=== PATIENT | female | born 1995 | race Two or more races ===

== ENCOUNTER 2020-03-08 07:11 | Inpatient (IN) | payer SELFPAY ==
[~2020-03-08] VITALS: Ht 152.4 cm; Wt 71.7 kg
[2020-03-08 07:40] VITALS: BP 120/66
[2020-03-08] MEDS ORDERED: ONDANSETRON PF 4 MG/2 ML VIAL. IVP PRN (07:45)
[2020-03-08] MEDS ORDERED: LIDOCAINE 1% PF 30 ML VIAL. INJ PRN (07:45)
[2020-03-08] MEDS ORDERED: OXYTOCIN 30 UNIT/500 ML PREMIX 500 ML IV PRN ×3 (07:45→17:30)
[2020-03-08] MEDS ORDERED: ACETAMINOPHEN 325 MG TABLET. PO PRN ×2 (07:45→17:30)
[2020-03-08] MEDS ORDERED: TERBUTALINE 1 MG/ML VIAL. SQ PRN (07:45)
[2020-03-08] MEDS ORDERED: CITRIC ACID/SODIUM CITRATE 30 ML SOLUTION. PO PRN (07:45)
[2020-03-08] MEDS ORDERED: IBUPROFEN 400 MG TABLET. PO PRN ×2 (07:45→17:30)
[2020-03-08] MEDS ORDERED: 0.9 % SODIUM CHLORIDE 10 ML DISP.SYRIN. IV PRN ×2 (07:45→17:30)
[2020-03-08] MEDS ORDERED: PENICILLIN G K 5,000,000 UNIT in IV DEXTROSE 5% 100ML 100 ML IV ONE (08:00)
[2020-03-08] MEDS ORDERED: OXYTOCIN PREMIX 30 UNIT/500 ML NS BAG. IV ONE (08:04)
[2020-03-08 08:14] LABS: BILIRUBIN,URINE NEGATIVE (NEG); CLARITY,URINE CLEAR; COLOR,URINE YELLOW; NITRITE,URINE NEGATIVE (NEG); PROTEIN,URINE NEGATIVE (NEG-TRACE); UROBILINOGEN,URINE 0.2 mg/dL (0.2 mg/dL)
[2020-03-08] MEDS: IV RINGERS,LACTATED 1000ML 1,000 ML IV SCH ×2 (08:28→14:08)
[2020-03-08 08:32] LABS: BACTERIA,URINE FEW /HPF (0-FEW); RBC,URINE 0 /HPF (0-2); SQUAMOUS EPITHELIAL CELL,UR MANY /LPF
[2020-03-08 08:49] LABS: BASO % 0 % (0-3); EOS # 0.1 x10^3/uL (0.0-0.7); EOS % 1 % (0-3); HEMATOCRIT 40.4 % (36.0-47.0); HEMOGLOBIN 13.5 g/dL (12.0-15.5); LYMPH # 2.2 x10^3/uL (1.0-4.8); LYMPH % 20 % (24-48); MEAN CORPUSCULAR HEMOGLOBIN 30 pg (25-35); MEAN CORPUSCULAR HGB CONC 33 g/dL (31-37); MEAN CORPUSCULAR VOLUME 89 fL (79-100); MONO # 0.6 x10^3/uL (0.0-1.1); MONO % 6 % (0-9); NEUT # 7.9 x10^3/uL (1.8-7.7); NEUT % 73 % (31-73); PLATELET COUNT 263 x10^3/uL (140-400); RED BLOOD COUNT 4.53 x10^6/uL (3.50-5.40); RED CELL DISTRIBUTION WIDTH 14.2 % (11.5-14.5); WHITE BLOOD COUNT 10.9 x10^3/uL (4.0-11.0)
--- NOTE | 2020-03-08 09:17 | PDOC1 ---
OB - History Hx of Present Care: Good Care Ultrasounds: Normal mid trimester US Obstetrical Complications: None Medical Complications: None Past Family/Social History * Past Medical, Surgical, Family and Obstetric Histories reviewed from chart. Rubella: Immune RPR/VDRL: Negative GBS Status: Unknown HBsAG: Negative OB - Chief Complaint & HPI Date of Admission: Date of Admission: Mar 08, 2020 at 07:11 Chief Complaint/History : 3 Para: 2 EGA: 40 Reason for admission: active labor Admission Nurse Assessment Rev: Yes OB - Admission Exam Physical Exam Vitals: VS - Last 72 Hours, by Label Date Time Temp Pulse Resp B/P (MAP) Pulse Ox O2 Delivery O2 Flow Rate FiO2 03/08/20 07:40 97.6 88 20 120/66 (84) Room Air 97.6 HEENT: Normal Heart: Regular Rate Lungs: Clear Abdomen: Gravid, Non tender, Soft Extremities: Edema Reflexes: Normal Cervical Dilatation: 4cm Effacement: 75% Station: -2 Membranes: Intact Heart Rate: Normal Accelerations: Accelerations Present Decelerations: No decelerations Contractions on Admission: < 5 Minutes Apart Intensity: Moderate Text A: 40 wks IUP Active labor GBS unknown P: Admit labor management and Pen G prophylaxis. JUSTA PATRICIO Jr, MD Mar 08, 2020 09:17
[2020-03-08] MEDS: fentaNYL PF VIAL 100 MCG/2 ML VIAL IVP PRN ×3 (11:47→16:26)
[2020-03-08] MEDS ORDERED: PENICILLIN G K 2,500,000 UNIT in IV DEXTROSE 5% 50 ML IV SCH (12:00)
--- NOTE | 2020-03-08 17:24 | PDOC ---
VAGINAL DELIVERY DATE DATE: 03/08/20 TIME: 17:22 : 3 Para: 3 EGA: 40 VAGINAL DELIVERY: VTX VACCUM ASSISTED: No PLACENTA: Spontaneous 8/9 SEX: Female WEIGHT Weight [ pending ] Nuchal Cord: Yes, Times 1 Amniotic Fluid: Clear PAIN: Natural EPISIOTOMY: No EXTENSION: No EBL 300 ml COMPLICATIONS none CONDITION pt. stable Signs of Intrauterine Infectio: None Shoulder Dystocia: No JUSTA PATRICIO Jr, MD Mar 08, 2020 17:24
[2020-03-08] MEDS ORDERED: diphenhydrAMINE HCL 25 MG CAPSULE PO PRN (17:30)
[2020-03-08] MEDS ORDERED: PHENYLEPH/MINERAL OIL/PETROLAT RECTAL OINTMENT TUBE. RC PRN (17:30)
[2020-03-08] MEDS ORDERED: TDaP (Adacel) per PROTOCOL. MC PRN (17:30)
[2020-03-08] MEDS ORDERED: MAGNESIUM HYDROXIDE 2,400 MG/30 ML ORAL.SUSP. PO PRN (17:30)
[2020-03-08] MEDS ORDERED: ZOLPIDEM 5 MG TABLET. PO PRN (17:30)
[2020-03-08] MEDS ORDERED: MAG HYDROX/ALUMINUM HYD/SIMETH 30 ML ORAL.SUSP PO PRN (17:30)
[2020-03-08] MEDS ORDERED: HYDROCORTISONE 1% TOPICAL OINTMENT 30GM TUBE. TP PRN (17:30)
[2020-03-08] MEDS ORDERED: SIMETHICONE 80 MG TAB.CHEW PO PRN (17:30)
[2020-03-08] MEDS ORDERED: BENZOCAINE 20% TOPICAL AEROSOL SPRAY 57GM CAN. TP PRN (17:30)
[2020-03-08] MEDS ORDERED: MMR per PROTOCOL. MC PRN (17:30)
[2020-03-08] MEDS ORDERED: oxyCODONE/APAP 5/325 1 TAB TABLET PO PRN (17:30)
[2020-03-08 20:40] VITALS: BP 107/50
[2020-03-09 01:00] VITALS: BP 96/51
[2020-03-09 05:02] LABS: BASO # 0.1 x10^3/uL (0.0-0.2); BASO % 1 % (0-3); EOS # 0.1 x10^3/uL (0.0-0.7); EOS % 1 % (0-3); HEMATOCRIT 36.1 % (36.0-47.0); HEMOGLOBIN 11.9 g/dL (12.0-15.5); LYMPH # 3.4 x10^3/uL (1.0-4.8); LYMPH % 29 % (24-48); MEAN CORPUSCULAR HEMOGLOBIN 30 pg (25-35); MEAN CORPUSCULAR HGB CONC 33 g/dL (31-37); MEAN CORPUSCULAR VOLUME 90 fL (79-100); MONO # 0.8 x10^3/uL (0.0-1.1); MONO % 7 % (0-9); NEUT # 7.2 x10^3/uL (1.8-7.7); NEUT % 62 % (31-73); PLATELET COUNT 234 x10^3/uL (140-400); RED CELL DISTRIBUTION WIDTH 14.1 % (11.5-14.5); WHITE BLOOD COUNT 11.6 x10^3/uL (4.0-11.0)
[2020-03-09 06:00] VITALS: BP 100/56
[2020-03-09] MEDS ORDERED: FERROUS SULFATE 325 MG TABLET. PO SCH (08:00)
[2020-03-09] MEDS: DOCUSATE SODIUM 100 MG CAPSULE. PO PRN ×2 (08:30→20:32)
[2020-03-09] MEDS ORDERED: MULTIVITAMIN with MINERAL TABLET. PO SCH (09:00)
--- NOTE | 2020-03-09 11:27 | PDOC ---
OB Progress Note Date of Service 03/09/20 Time of Evaluation 1125 Notes Pt. feeling well. No complaints. Lab Laboratory Tests Test 03/08/20 07:30 03/08/20 08:33 03/09/20 04:27 Urine Collection Type Unknown Urine Color Yellow Urine Clarity Clear Urine pH 7.0 (<5.0-8.0) Urine Specific [place] <=1.005 (1.000-1.030) Urine Protein Negative mg/dL (NEG-TRACE) Urine Glucose (UA) Negative mg/dL (NEG) Urine Ketones (Stick) Negative mg/dL (NEG) Urine Blood Negative (NEG) Urine Nitrite Negative (NEG) Urine Bilirubin Negative (NEG) Urine Urobilinogen Dipstick 0.2 mg/dL (0.2 mg/dL) Urine Leukocyte Esterase Moderate (NEG) Urine RBC 0 /HPF (0-2) Urine WBC 1-4 /HPF (0-4) Urine Squamous Epithelial Cells Many /LPF Urine Bacteria Few /HPF (0-FEW) White Blood Count 10.9 x10^3/uL (4.0-11.0) 11.6 x10^3/uL (4.0-11.0) Red Blood Count 4.53 x10^6/uL (3.50-5.40) 4.00 x10^6/uL (3.50-5.40) Hemoglobin 13.5 g/dL (12.0-15.5) 11.9 g/dL (12.0-15.5) Hematocrit 40.4 % (36.0-47.0) 36.1 % (36.0-47.0) Mean Corpuscular Volume 89 fL (79-100) 90 fL (79-100) Mean Corpuscular Hemoglobin 30 pg (25-35) 30 pg (25-35) Mean Corpuscular Hemoglobin Concent 33 g/dL (31-37) 33 g/dL (31-37) Red Cell Distribution Width 14.2 % (11.5-14.5) 14.1 % (11.5-14.5) Platelet Count 263 x10^3/uL (140-400) 234 x10^3/uL (140-400) Neutrophils (%) (Auto) 73 % (31-73) 62 % (31-73) Lymphocytes (%) (Auto) 20 % (24-48) 29 % (24-48) Monocytes (%) (Auto) 6 % (0-9) 7 % (0-9) Eosinophils (%) (Auto) 1 % (0-3) 1 % (0-3) Basophils (%) (Auto) 0 % (0-3) 1 % (0-3) Neutrophils # (Auto) 7.9 x10^3/uL (1.8-7.7) 7.2 x10^3/uL (1.8-7.7) Lymphocytes # (Auto) 2.2 x10^3/uL (1.0-4.8) 3.4 x10^3/uL (1.0-4.8) Monocytes # (Auto) 0.6 x10^3/uL (0.0-1.1) 0.8 x10^3/uL (0.0-1.1) Eosinophils # (Auto) 0.1 x10^3/uL (0.0-0.7) 0.1 x10^3/uL (0.0-0.7) Basophils # (Auto) 0.0 x10^3/uL (0.0-0.2) 0.1 x10^3/uL (0.0-0.2) Treponema pallidum Antibody Nonreactive (Nonreactive) Laboratory Tests Test 03/09/20 04:27 White Blood Count 11.6 x10^3/uL (4.0-11.0) Red Blood Count 4.00 x10^6/uL (3.50-5.40) Hemoglobin 11.9 g/dL (12.0-15.5) Hematocrit 36.1 % (36.0-47.0) Mean Corpuscular Volume 90 fL (79-100) Mean Corpuscular Hemoglobin 30 pg (25-35) Mean Corpuscular Hemoglobin Concent 33 g/dL (31-37) Red Cell Distribution Width 14.1 % (11.5-14.5) Platelet Count 234 x10^3/uL (140-400) Neutrophils (%) (Auto) 62 % (31-73) Lymphocytes (%) (Auto) 29 % (24-48) Monocytes (%) (Auto) 7 % (0-9) Eosinophils (%) (Auto) 1 % (0-3) Basophils (%) (Auto) 1 % (0-3) Neutrophils # (Auto) 7.2 x10^3/uL (1.8-7.7) Lymphocytes # (Auto) 3.4 x10^3/uL (1.0-4.8) Monocytes # (Auto) 0.8 x10^3/uL (0.0-1.1) Eosinophils # (Auto) 0.1 x10^3/uL (0.0-0.7) Basophils # (Auto) 0.1 x10^3/uL (0.0-0.2) Medications Current Medications Sodium Chloride (Normal Saline Flush) 3 ml QSHIFT PRN IV AFTER MEDS AND BLOOD DRAWS; Start 03/08/20 at 07:45; Stop 03/08/20 at 17:26; Status DC Ringer's Solution 1,000 ml @ 125 mls/hr Q8H IV Last administered on 03/08/20at 14:08; Start 03/08/20 at 07:43; Stop 03/08/20 at 21:39; Status DC Fentanyl Citrate (Fentanyl 2ml Vial) 100 mcg PRN Q30MIN PRN IVP Severe pain Last administered on 03/08/20at 16:26; Start 03/08/20 at 07:45 Acetaminophen (Tylenol) 650 mg PRN Q6HRS PRN PO MILD PAIN / TEMP; Start 03/08/20 at 07:45; Stop 03/08/20 at 17:27; Status DC Ondansetron HCl (Zofran) 4 mg PRN Q4HRS PRN IVP NAUSEA/VOMITING; Start 03/08/20 at 07:45 Citric Acid/ Sodium Citrate (Bicitra) 30 ml 1X PRN PRN PO DYSPEPSIA; Start 02/24 02/12 at 07:45; Stop 03/09/20 at 07:44; Status DC Terbutaline Sulfate (Brethine) 0.25 mg 1X PRN PRN SQ SEE COMMENTS; Start 02/24 02/12 at 07:45; Stop 03/09/20 at 07:44; Status DC Lidocaine HCl (Xylocaine 1% Pf 30ml Vial) 30 ml 1X PRN PRN INJ SEE COMMENTS; Start 03/08/20 at 07:45; Stop 03/10/20 at 07:44 Oxytocin/Sodium Chloride 500 ml @ 0 mls/hr CONT PRN IV SEE I/O RECORD; Start at 07:45 Oxytocin/Sodium Chloride 500 ml @ 0 mls/hr CONT PRN PRN IV Post delivery bleeding; Start 03/08/20 at 07:45 Ibuprofen (Motrin) 800 mg PRN Q6HRS PRN PO INFLAMMATION; Start 03/08/20 at 07:45; Stop 03/08/20 at 17:29; Status DC Penicillin G Potassium [id number] unit/Dextrose 100 ml @ 100 mls/hr 1X ONCE IV Last administered on 03/08/20at 08:29; Start 03/08/20 at 08:00; Stop 03/08/20 at 08:59; Status DC Penicillin G Potassium [id number] unit/Dextrose 50 ml @ 100 mls/hr Q4H IV Last administered on 03/08/20at 16:26; Start 03/08/20 at 12:00; Stop 03/08/20 at 19:41; Status DC Sodium Chloride (Normal Saline Flush) 10 ml QSHIFT PRN IV AFTER MEDS AND BLOOD DRAWS; Start 03/08/20 at 17:30 Oxytocin/Sodium Chloride 500 ml @ 62.5 mls/hr CONT PRN IV SEE I/O RECORD; Start 03/08/20 at 17:30; Stop 03/09/20 at 01:29; Status DC Acetaminophen (Tylenol) 650 mg PRN Q6HRS PRN PO MILD PAIN / TEMP; Start 03/08/20 at 17:30 Ibuprofen (Motrin) 800 mg PRN Q8HRS PRN PO INFLAMMATION/PAIN PREVENTION Last administered on 03/08/20at 19:58; Start 03/08/20 at 17:30 Docusate Sodium (Colace) 100 mg PRN BID PRN PO CONSTIPATION Last administered on 03/09/20at 08:30; Start 03/08/20 at 17:30 Magnesium Hydroxide (Milk Of Magnesia) 2,400 mg PRN DAILY PRN PO CONSTIPATION; Start 03/08/20 at 17:30 Al Hydroxide/Mg Hydroxide (Mylanta Plus Xs) 30 ml PRN Q4HRS PRN PO HEARTBURN / GAS; Start 03/08/20 at 17:30 Simethicone (Gas-X) 80 mg PRN AFTMEALHC PRN PO GAS / BLOATING; Start 03/08/20 at 17:30 Diphenhydramine HCl (Benadryl) 25 mg PRN Q6HRS PRN PO ITCHING; Start 03/08/20 at 17:30 Benzocaine (Americaine) 1 spray PRN QID PRN TP TOPICAL PAIN Last administered on 03/08/20at 19:58; Start 03/08/20 at 17:30 Phenyleph/Shark Oil/Min Oil/Petrol (Preparation H) 1 adrienne PRN QID PRN RC RECTAL PAIN; Start 03/08/20 at 17:30 Hydrocortisone (Cortaid) 1 adrienne PRN QID PRN TP PERINEAL PAIN; Start 03/08/20 at 17:30 Ferrous Sulfate (Feosol) 325 mg BIDWMEALS PO ; Start 03/09/20 at 08:00 Zolpidem Tartrate (Ambien) 5 mg PRN QHS PRN PO INSOMNIA, MAY REPEAT X1; Start 03/08/20 at 17:30 Info (Do NOT chart on this placeholder) 1 ea 1X PRN PRN MC SEE COMMENTS; Start 03/08/20 at 17:30 Info (Do NOT chart on this placeholder) 1 ea 1X PRN PRN MC SEE COMMENTS; Start 03/08/20 at 17:30 Oxycodone/ Acetaminophen (Percocet 5/325) 2 tab PRN Q4HRS PRN PO MODERATE PAIN, SEVERE PAIN; Start 03/08/20 at 17:30 Multivitamins (Thera M Plus) 1 tab DAILY PO Last administered on 03/09/20at 08:30; Start 03/09/20 at 09:00 Active Scripts Active Reported No Known Medications Prior To Admisstion (Info) Each 1 Each MC 1X Exam Abd:soft, non tender, fundus firm Assessment PPD#1 s/p Plan of Care: Continue current Tx, Mgmt JUSTA PATRICIO Jr, MD Mar 09, 2020 11:27
[2020-03-09 11:58] VITALS: BP 106/48
[2020-03-09 18:11] VITALS: BP 104/64
[2020-03-10 00:45] VITALS: BP 106/57
[2020-03-10 06:05] VITALS: BP 93/43
--- NOTE | 2020-03-10 12:09 | PDOC3 ---
OB DISCHARGE SUMMARY DATE OF ADMISSION: 03/08/20 DATE OF DISCHARGE: 03/10/20 REASON FOR ADMISSION: Onset of labor INTRAPARTUM PROCEDURES: Spontanous Vag Deliv DISCHARGE DIAGNOSIS: Term Delivered DISCHARGE INFORMATION: Activity (ad tonya), Diet (regular diet), Instructions (pelvic rest x 6 wks) HOSPITAL COURSE Term gestation delivered vaginally without complications. JUSTA PATRICIO Jr, MD Mar 10, 2020 12:09
[2020-03-10] MEDS ORDERED: IBUP-1027 PO (12:10)
--- NOTE | 2020-03-10 12:11 | DISCH ---
DISCHARGE INSTRUCTIONS Condition on Discharge Condition on Discharge: Stable Activity After Discharge Activity Instructions for Disc: Activity as tolerated Lifting Instructions after Dis: No heavy lifting Driving Instructions after Dis: Do not drive today Diet after Discharge Diet after Discharge: Regular Contacting the DRRachel after DC Call your doctor for: Concerns you may have Follow-Up Follow up with: Yoel in 6 wks JUSTA PATRICIO Jr, MD Mar 10, 2020 12:11
[2020-03-10 14:00] VITALS: BP 101/57
== END 2020-03-10 14:20 | disposition home or self-care (01) | DRG 807 ==
LOC: 3 SO LND 07:11 → OBSVTOIN 07:47 → 3 NORTH 20:25
PROVIDERS: ADMIT Obstetrics & Gynecology; ATTEND Obstetrics & Gynecology
PROC: 10E0XZZ Delivery of Products of Conception, External Approach (ICD-10-PCS; principal; 2020-03-08)
DX: O69.81X0 Labor and delivery complicated by cord around neck, without compression, not applicable or unspecified (principal); Z37.0 Single live birth; Z3A.40 40 weeks gestation of pregnancy
CPT/HCPCS: 36415; 81001; 85025; 86592; 86850; 86900; 86901; 87086; G0379; J2540; J2590; J3010; J7060; J7120; G0378